=== PATIENT | female | born 1980 | race Caucasian/White ===

== ENCOUNTER 2024-08-10 11:54 | Emergency (ER) | payer MEDICAID, OTHER ==
[~2024-08-10] VITALS: Ht 154.9 cm; Wt 90.0 kg
[2024-08-10 12:03] VITALS: O2SAT 98
[2024-08-10 12:55] LABS: HEMATOCRIT 36.6 % (36.0-48.0); HEMOGLOBIN 11.3 g/dL (12.0-16.0); MEAN CORPUSCULAR HEMOGLOBIN 23.4 pg (28.0-32.0); MEAN CORPUSCULAR HGB CONC 30.8 g/dL (31.0-37.0); PLATELET 292 x1000/uL (130-400); RED BLOOD CELL COUNT 4.81 mill/uL (4.2-5.4); RED CELL DISTRIBUTION WIDTH 17.5 % (11.6-14.6); WHITE BLOOD COUNT 9.1 x1000/uL (4.5-11.0)
[2024-08-10 13:00] LABS: CHLORIDE 108 mEq/L (98-107); POTASSIUM 4.1 mEq/L (3.5-5.1); SODIUM 140 mEq/L (136-145)
[2024-08-10 13:01] LABS: CARBON DIOXIDE 26 mEq/L (21-32)
[2024-08-10 13:02] LABS: CALCIUM 9.4 mg/dL (8.7-10.4)
[2024-08-10] MEDS: IBUPROFEN 600MG TABLET PO ONE (13:03)
[2024-08-10 13:06] LABS: CREATININE 0.7 mg/dL (0.6-1.0); GLUCOSE 115 mg/dL (70-105); UREA NITROGEN BLOOD 11 mg/dL (9-23)
[2024-08-10] MEDS ORDERED: IBUP-2029 MT (13:39)
[2024-08-10 13:49] LABS: GLUCOSE URINE NEGATIVE (NEGATIVE); KETONES URINE NEGATIVE (NEGATIVE)
[2024-08-10 13:55] VITALS: BP 174/108; PULSE 72; RESP 18; O2SAT 99
[2024-08-10 14:05] LABS: COLOR URINE YELLOW (YELLOW)
[2024-08-10 14:06] LABS: CLARITY URINE CLOUDY (CLEAR); LEUKOCYTE ESTERASE URINE 2+ (NEGATIVE); NITRITE URINE POSITIVE (NEGATIVE); OCCULT BLOOD URINE 3+ (NEGATIVE); PH URINE 7.5 (4.5-8.0); PROTEIN URINE TRACE (NEGATIVE); SPECIFIC GRAVITY URINE 1.019 (1.005-1.030)
[2024-08-10 14:09] LABS: BACTERIA URINE 3+; RBC URINE 25-50 /hpf (0-2); SQUAMOUS EPITHELIAL CELL URINE 3+ /lpf (RARE/1+); TRICHOMONAS URINE 1+; WBC URINE 25-50 /hpf (0-2); YEAST URINE NONE SEEN
== END 2024-08-10 13:58 | disposition home or self-care (01) ==
LOC: ER 11:54
DX: G89.29 Other chronic pain (principal); Z00.8 Encounter for other general examination; I10 Essential (primary) hypertension; Z79.899 Other long term (current) drug therapy; Z98.890 Other specified postprocedural states
CPT/HCPCS: 36415; 80048; 81003; 85027; 87077; 87186; 99283